=== PATIENT | female | born 1990 | race Caucasian/White ===

== ENCOUNTER → 2020-10-03 16:39 | Outpatient (CLI) | payer OTHER, SELFPAY ==
[2020-10-03 18:21] LABS: HIV 1 & 2 Ab/Ag 4th Gen Combo NEGATIVE (NEGATIVE); Hep C Virus Ab w/Reflex Quant NEGATIVE s/c (NEGATIVE)
[2020-10-04 07:31] LABS: HSV Type 1 AB, IgG <0.91 index (0.00-0.90); RPR Screen Non Reactive (Non Reactive)
[2020-10-04 22:51] LABS: HSV I/II IgM <0.91 Ratio (0.00-0.90)
[2020-10-05 14:12] LABS: Chlamydia trachomatis NAA Negative (Negative); Neisseria gonorrhoeae NAA Negative (Negative)
== END ==
PROVIDERS: Referring Provider Physician Assistant; Visit Provider Physician Assistant
DX: Z11.3 Encounter for screening for infections with a predominantly sexual mode of transmission (principal)
CPT/HCPCS: 36415; 86592; 86694; 86695; 86696; 86803; 87389; 87491; 87591

== ENCOUNTER → 2021-10-11 12:11 | Outpatient (CLI) | payer OTHER, SELFPAY ==
[2021-10-11 14:06] LABS: Urine N gonorrhoeae NOT DETECTED
[2021-10-11 14:13] LABS: Urine Chlamydia NOT DETECTED
== END ==
PROVIDERS: PCP Registered Nurse; Visit Provider Physician Assistant
DX: Z11.3 Encounter for screening for infections with a predominantly sexual mode of transmission (principal)
CPT/HCPCS: 87210; 87491; 87591

== ENCOUNTER → 2021-12-01 16:34 | Outpatient (CLI) | payer OTHER, SELFPAY ==
[2021-12-01 18:28] LABS: Urine N gonorrhoeae NOT DETECTED
[2021-12-01 18:38] LABS: Urine Chlamydia NOT DETECTED
[2021-12-02 04:36] LABS: HSV 2 IGG AB < 0.91 index (0.00-0.90); HSV1IGG < 0.91 index (0.00-0.90)
[2021-12-02 06:17] LABS: RPR Screen Non Reactive (Non Reactive)
[2021-12-04 16:45] LABS: HIV 1 & 2 Ab/Ag 4th Gen Combo NEGATIVE (NEGATIVE); Hep C Virus Ab w/Reflex Quant NEGATIVE s/c (NEGATIVE)
== END ==
PROVIDERS: Referring Provider Physician Assistant; Visit Provider Physician Assistant
DX: Z11.3 Encounter for screening for infections with a predominantly sexual mode of transmission (principal); N89.8 Other specified noninflammatory disorders of vagina
CPT/HCPCS: 36415; 86592; 86695; 86696; 86803; 87210; 87389; 87491; 87591

== ENCOUNTER → 2021-12-26 19:10 | Outpatient (ROUT) | payer OTHER, SELFPAY ==
[2021-12-26 20:46] LABS: Urine N gonorrhoeae NOT DETECTED
[2021-12-26 21:18] LABS: Urine Chlamydia NOT DETECTED
== END ==
PROVIDERS: Visit Provider Physician Assistant
DX: Z11.3 Encounter for screening for infections with a predominantly sexual mode of transmission (principal)
CPT/HCPCS: 87491; 87591

== ENCOUNTER → 2021-12-27 17:28 | Outpatient (CLI) | payer OTHER, SELFPAY ==
[2021-12-28 05:53] LABS: RPR Screen Non Reactive (Non Reactive)
[2021-12-28 06:39] LABS: HSV 2 IGG AB < 0.91 index (0.00-0.90); HSV1IGG < 0.91 index (0.00-0.90)
[2021-12-28 17:01] LABS: HIV 1 & 2 Ab/Ag 4th Gen Combo NEGATIVE (NEGATIVE); Hep C Virus Ab w/Reflex Quant NEGATIVE s/c (NEGATIVE)
== END ==
PROVIDERS: Referring Provider Physician Assistant; Visit Provider Physician Assistant
DX: Z11.3 Encounter for screening for infections with a predominantly sexual mode of transmission (principal)
CPT/HCPCS: 36415; 86592; 86695; 86696; 86803; 87389